=== PATIENT | female | born 1960 | race Caucasian/White ===

== ENCOUNTER 2021-01-15 13:41 | Observation (INO) ==
[2021-01-15 14:46] LABS: Basophils # 0.1 K/mcL (0.0-0.2); Basophils % 0.7 %; Eosinophils # 0.1 K/mcL (0.0-0.6); Eosinophils % 0.7 %; Hematocrit 42.8 % (35.3-44.9); Hemoglobin 14.3 g/dL (11.5-15.4); Immature Granulocytes % 0.7 % (0-4); Lymphocytes % 14.5 %; Mean Corpuscular HGB Conc 33.4 g/dL (31.6-35.5); Mean Corpuscular Hemoglobin 34.9 pg (28.0-33.3); Mean Corpuscular Volume 104.4 fL (83.0-100.0); Mean Platelet Volume 8.9 fL (9.4-12.4); Monocytes # 0.3 K/mcL (0.0-1.3); Monocytes % 3.6 %; Neutrophils # 5.5 K/mcL (1.6-8.9); Platelet Count 133 K/mcL (140-400); Red Cell Distribution Width 14.1 % (11.5-14.5); Segmented Neutrophils % 79.8 %; White Blood Count 6.9 K/mcL (4.3-11.1)
[2021-01-15 15:15] LABS: BUN/Creatinine Ratio 17 (6-26); Blood Urea Nitrogen 11 mg/dL (6-20); Calcium 9.3 mg/dL (8.6-10.3); Carbon Dioxide 18 mEq/L (23-29); Chloride 96 mEq/L (98-107); Glucose 66 mg/dL (70-105); Osmolality,Calculated 288 (280-300); Potassium 3.5 mEq/L (3.5-5.1); Sodium 140 mEq/L (136-145); Troponin I 0.04 ng/mL (< 0.04); eGFR For African Americans > 60 (> 60); eGFR For Non-African Americans > 60 (> 60)
[2021-01-15] MEDS ORDERED: Aspirin 325 MG TABLET PO ONE (15:54)
[2021-01-15] MEDS ORDERED: Isovue-370 500 ML BOTTLE IVP ONE (15:54)
[2021-01-15 16:27] LABS: Thyroid Stimulating Hormone 0.988 mcIU/mL (0.340-5.600)
[2021-01-15] MEDS ORDERED: *HR* Metoprolol 5 MG/5 ML VIAL IVP ONE (18:05)
[2021-01-15] MEDS ORDERED: Ondansetron 4 MG/2 ML VIAL IVP PRN (20:07)
[2021-01-15] MEDS ORDERED: Melatonin 3 MG TABLET PO PRN (20:07)
[2021-01-15] MEDS ORDERED: Naloxone 0.4 MG/ML INJ IVP PRN (20:07)
[2021-01-15] MEDS ORDERED: Nitroglycerin 0.4 MG TAB.SUBL SL PRN (20:09)
[2021-01-15] MEDS ORDERED: Perflutren Lipid Microsphere 1.3 ML in 0.9 % Sodium Chloride 8.7 ML IVP PRN (20:21)
[2021-01-15] MEDS ORDERED: *HR* Promethazine 25 MG/ML VIAL IM PRN (22:43)
[2021-01-15] MEDS: cloNIDine HCL 0.1 MG TABLET PO SCH (23:40)
[2021-01-16 00:29] LABS: Amphetamine Screen,Urine Negative ng/mL (Cutoff=1000); Barbiturate Screen,Urine Negative ng/mL (Cutoff=200); Benzodiazepines Screen,Urine Negative ng/mL (Cutoff=200); Cannabinoid Screen,Urine Negative ng/mL (Cutoff = 50); Cocaine Screen,Urine Negative ng/mL (Cutoff= 300); Opiate Screen,Urine Negative ng/mL (Cutoff=300); Phencyclidine Screen,Urine Negative ng/mL (Cutoff=25)
[2021-01-16 00:41] LABS: RBC,Urine 30-50 per hpf (0-3); Squamous Epithelial Cell,Urine Few per hpf (None-Few); WBC,Urine TNTC per hpf (0-3)
[2021-01-16 00:50] LABS: Bilirubin,Urine Negative (Negative); Blood,Urine Small (Negative); Clarity,Urine Clear (Clear); Color,Urine Yellow (Yellow); Glucose,Urine (UA) Normal (Normal); Ketones,Urine 100 mg/dL (Negative); Specific Gravity,Urine > 1.030 (1.010-1.025)
[2021-01-16 00:51] LABS: Leukocyte Esterase,Urine Large (Negative); Nitrite,Urine Negative (Negative); Protein,Urine 100 mg/dL (Neg-Trace); Urobilinogen,Urine Normal (Normal)
[2021-01-16 02:38] LABS: Hematocrit 38.4 % (35.3-44.9); Mean Corpuscular HGB Conc 33.9 g/dL (31.6-35.5); Mean Corpuscular Hemoglobin 33.8 pg (28.0-33.3); Mean Corpuscular Volume 99.7 fL (83.0-100.0); Mean Platelet Volume 9.3 fL (9.4-12.4); Platelet Count 130 K/mcL (140-400); Red Blood Count 3.85 M/mcL (3.82-4.97); Red Cell Distribution Width 14.4 % (11.5-14.5); White Blood Count 6.7 K/mcL (4.3-11.1)
[2021-01-16 02:57] LABS: BUN/Creatinine Ratio 17 (6-26); Blood Urea Nitrogen 11 mg/dL (6-20); Calcium 9.2 mg/dL (8.6-10.3); Carbon Dioxide 29 mEq/L (23-29); Chloride 95 mEq/L (98-107); Glucose 100 mg/dL (70-105); Osmolality,Calculated 283 (280-300); Potassium 3.7 mEq/L (3.5-5.1); Sodium 137 mEq/L (136-145); eGFR For African Americans > 60 (> 60); eGFR For Non-African Americans > 60 (> 60)
[2021-01-16 07:36] VITALS: BP 112/56
[2021-01-16] MEDS ORDERED: Fluticasone Propionate Nasal 50 MCG/SPRAY BOTTLE NS PRN (08:26)
[2021-01-16] MEDS ORDERED: Multivit/Ca/Min/Fe/FA 1 TAB TABLET PO SCH (09:00)
[2021-01-16] MEDS ORDERED: Loratadine 10 MG TABLET PO SCH (09:00)
[2021-01-16] MEDS: cloNIDine HCL 0.1 MG TABLET PO SCH (09:53)
== END 2021-01-16 13:19 | disposition home or self-care (01) ==
LOC: 3BNU 13:41 → EMEROOARM 13:41 → SUATTDRO 18:49 → 3BNU 19:59
PROVIDERS: ADMIT Family Medicine; ATTEND Internal Medicine